=== PATIENT | female | born 1955 | race Caucasian/White ===

== ENCOUNTER 2016-10-01 11:12 | Inpatient (IN) | payer OTHER ==
[2016-10-01] MEDS ORDERED: PROZ20CA11 PO (11:31)
[2016-10-01] MEDS ORDERED: METO25TA3 PO (11:31)
[2016-10-01] MEDS ORDERED: PROT40TA PO (11:31)
[2016-10-01] MEDS ORDERED: ALPR.5 PO (11:31)
== END 2016-10-04 08:00 | disposition home or self-care (01) | DRG 182 ==
LOC: HSDI 10-04 05:09 → EDUNIT# 10-04 08:30
PROVIDERS: ADMIT Thoracic Surgery (Cardiothoracic Vascular Surgery); ATTEND Thoracic Surgery (Cardiothoracic Vascular Surgery)
DX: C34.10 Malignant neoplasm of upper lobe, unspecified bronchus or lung (principal); Z53.8 Procedure and treatment not carried out for other reasons
CPT/HCPCS: 36415; 71020; 80048; 81001; 85027; 85610; 85730; 87086; 93005

== ENCOUNTER → 2016-10-01 | Outpatient (CLI) | payer OTHER ==
[~2016-10-01] MED LIST: ALPR.5 PO; DOCU1CAP39 PO; METO25TA3 PO; MSIR15 PO; PROT40TA PO; PROZ20CA11 PO
[2016-10-01 12:31] LABS: BACTERIA, URINE RARE /hpf; BLOOD, URINE NEG (NEG); COMMENT (UR) CULTURE INDICATED; CULTURE IF INDICATED CULTURE INDICATED; GLUCOSE,URINE NEG (NEG); KETONE, URINE NEG (NEG); MUCUS URINE FEW /lpf (OCC); NITRITE,URINE NEG (NEG); SQUAMOUS EPITHELIAL CELL URINE 2 /hpf (0-5); TRANSITIONAL EPI CELLS, URINE <1 /hpf; URINE COLOR YELLOW (YELLW/STRAW)
[2016-10-01 12:38] LABS: APTT (PATIENT) 30.3 SEC (24.3-30.1); PROTHROMBIN TIME - PATIENT 11.1 SEC (9.8-11.6)
[2016-10-01 12:39] LABS: HEMATOCRIT 38.2 % (35.0-46.0); MEAN CELL VOLUME 89.3 FL (80.0-100.0); MEAN CORPUSCULAR HEMOGLOBIN 28.8 PG (27.0-34.0); MEAN CORPUSCULAR HGB CONC 32.2 % (32.0-36.0); PLATELET COUNT 240 TH/MM3 (150-450); RED BLOOD COUNT 4.28 MIL/MM3 (4.00-5.30); RED CELL DISTRIBUTION WIDTH 14.4 % (11.6-17.2); REVIEW FLAG FINAL
--- NOTE | 2016-10-01 13:10 | RADRPT ---
EXAM DATE/TIME: 10/01/2016 12:43 [facility] COMPARISON: No previous studies available for comparison. INDICATIONS : Evaluate for pneumonia, pneumothorax or communicable disease. Preop chest for left lung lobectomy on 10/04/16, quit smoking 6 weeks ago, no shortness of breath, no chests pain MEDICAL HISTORY : mass left lung SURGICAL HISTORY : None. ENCOUNTER: Initial ACUITY: 1 week PAIN SCORE: 0/10 LOCATION: Left chest FINDINGS: There is a mass in the left upper lung measuring 2.7 cm. Otherwise the lungs are grossly clear and we ll-aerated. There is some mild chronic interstitial changes bilaterally. The heart size is within nor mal limits. There are no pleural effusions or pulmonary edema. The bony structures are grossly intact . CONCLUSION: 1. 2.7 cm mass left upper lung. 2. Mild bilateral chronic interstitial lung changes. 3. No acute pulmonary infiltrates. Tk Higuera MD on October 01, 2016 at 13:08 Board Certified Radiologist. This report was verified electronically.
[2016-10-01 13:32] LABS: POTASSIUM 4.1 MEQ/L (3.5-5.1)
--- NOTE | 2016-10-02 09:41 | EKG ---
Date Performed: 10/01/2016 Time Performed: 12:00:18 PTAGE: 61 years EKG: SINUS BRADYCARDIA BORDERLINE ECG NO PREVIOUS TRACING DOCTOR: Noe Ag Interpretating Date/Time 10/02/2016 09:39:20
== END ==
LOC: CPRE 11:08
PROVIDERS: ATTEND Thoracic Surgery (Cardiothoracic Vascular Surgery)
DX: Z01.810 Encounter for preprocedural cardiovascular examination (principal); Z01.811 Encounter for preprocedural respiratory examination; Z01.812 Encounter for preprocedural laboratory examination; C34.10 Malignant neoplasm of upper lobe, unspecified bronchus or lung; R94.31 Abnormal electrocardiogram [ECG] [EKG]
CPT/HCPCS: 36415; 71020; 80048; 81001; 85027; 85610; 85730; 87086; 93005

== ENCOUNTER 2016-10-08 15:24 | Inpatient (IN) | payer OTHER ==
[~2016-10-08] VITALS: Ht 157.5 cm; Wt 72.4 kg
[~2016-10-08 15:24] MED LIST changes: -DOCU1CAP39 PO; -MSIR15 PO
[2016-10-09] VITALS (13 sets, daily range): BP systolic 101–135; BP diastolic 54–77; PULSE 56–73; RESP 16–20; TEMP 97.4–98; O2SAT 98–100
[2016-10-09] MEDS ORDERED: CHLORHEXIDINE GLUCONATE 2 % 1 PACK (2 CLOTHS) TOPICAL PRN (06:15)
[2016-10-09] MEDS ORDERED: POVIDONE IODINE 5% (ANTISEPSIS KIT) 4 APPLICATIONS EACH NARE PRN (06:15)
[2016-10-09] MEDS ORDERED: LACTATED RINGER'S 1000 ML IV PRN (06:15)
[2016-10-09] MEDS ORDERED: METOPROLOL TARTRATE 25 MG TAB PO PRN (06:15)
[2016-10-09] MEDS ORDERED: INSULIN HUMAN REGULAR 1,000 UNITS/10 ML VIAL SQ PRN (06:15)
[2016-10-09] MEDS ORDERED: SODIUM CHLORID 0.9% 500 ML IV PRN (06:15)
[2016-10-09 06:37] LABS: BASOPHIL # 0.1 TH/MM3 (0-0.2); BASOPHIL % 1.1 % (0.0-2.0); EOSINOPHIL # 0.2 TH/MM3 (0-0.4); HEMATOCRIT 36.4 % (35.0-46.0); HEMO FLAGS DIFF FINAL; LYMPH % 42.3 % (9.0-44.0); LYMPHOCYTE # 2.9 TH/MM3 (1.0-4.8); MEAN CELL VOLUME 87.9 FL (80.0-100.0); MEAN CORPUSCULAR HEMOGLOBIN 29.9 PG (27.0-34.0); MONO % 9.9 % (0.0-8.0); NEUT % 43.7 % (16.0-70.0); PLATELET COUNT 250 TH/MM3 (150-450); RED BLOOD COUNT 4.14 MIL/MM3 (4.00-5.30); RED CELL DISTRIBUTION WIDTH 14.3 % (11.6-17.2); WHITE BLOOD COUNT 6.8 TH/MM3 (4.0-11.0)
[2016-10-09 06:49] LABS: APTT (PATIENT) 30.8 SEC (24.3-30.1); PROTHROMBIN TIME - PATIENT 11.4 SEC (9.8-11.6)
[2016-10-09 06:58] LABS: BICARBONATE 29.9 MEQ/L (21.0-32.0); POTASSIUM 3.9 MEQ/L (3.5-5.1)
[2016-10-09] MEDS ORDERED: ceFAZolin 2 GM PREMIX 50 ML ONE (06:58)
[2016-10-09] MEDS ORDERED: FAMOTIDINE 20 MG/2 ML VIAL ONE (06:59)
[2016-10-09] MEDS ORDERED: MIDAZOLAM HCL 2 MG/2 ML VIAL ONE (06:59)
[2016-10-09 07:27] LABS: BLOOD, URINE NEG (NEG); COMMENT (UR) CULT NOT INDICATED; CULTURE IF INDICATED CULT NOT INDICATED; GLUCOSE,URINE NEG (NEG); KETONE, URINE NEG (NEG); MUCUS URINE FEW /lpf (OCC); NITRITE,URINE NEG (NEG); PH, URINE 5.5 (5.0-8.5); SQUAMOUS EPITHELIAL CELL URINE <1 /hpf (0-5); URINE COLOR YELLOW (YELLW/STRAW)
[2016-10-09] MEDS ORDERED: BUPIVACAINE LIPOSO PF 1.3% INJ 20 ML, DEXAMETHASONE INJ 4 MG, MORPHINE INJ 10 MG in SOD... P-ARTICULR SCH (07:45)
[2016-10-09] MEDS ORDERED: ONDANSETRON HCL 4 MG/2 ML VIAL IV PUSH PRN (10:30)
[2016-10-09] MEDS ORDERED: ACETAMINOPHEN 325 MG TAB PO PRN (10:30)
[2016-10-09] MEDS ORDERED: ACETAMINOPHEN/HYDROcodone 325 MG/5 MG TAB PO PRN ×2 (10:30)
[2016-10-09] MEDS ORDERED: RESP: ALBUTEROL 2.5 MG/3 ML NEB (PRN) NEB (10:30)
[2016-10-09] MEDS ORDERED: MAGNESIUM HYDROXIDE SUSP 30 ML CUP PO PRN (10:30)
[2016-10-09] MEDS ORDERED: SODIUM CHLORIDE 0.9% FLUSH 10 ML FLUSH IV FLUSH PRN (10:30)
[2016-10-09] MEDS ORDERED: Post-op Orders (for Pharmacy) MISC OTHER ONE (10:43)
[2016-10-09] MEDS ORDERED: fentaNYL CITRATE 250 MCG/5 ML AMP ONE (11:06)
[2016-10-09] MEDS ORDERED: *morphine SULFATE 8 MG/ML PERIprocedure ONLY ONE (11:08)
[2016-10-09] MEDS: ACETAMINOPHEN 1000 MG/100 ML VIAL IV SCH ×3 (11:29→23:01)
[2016-10-09] MEDS ORDERED: DO NOT ADM ANY ANTICOAGULANT DRUGS PRN (11:30)
--- NOTE | 2016-10-09 11:49 | RADRPT ---
EXAM DATE/TIME: 10/09/2016 10:55 [facility] COMPARISON: No previous studies available for comparison. INDICATIONS : S/p thoracotomy. MEDICAL HISTORY : None. SURGICAL HISTORY : None. ENCOUNTER: Initial ACUITY: 1 day PAIN SCORE: Non-responsive. LOCATION: Bilateral chest FINDINGS: Chest tube is in place on the left without pneumothorax. Right lung is clear. Heart and pulmonary v ascularity are normal. Minimal subcutaneous emphysema is present. CONCLUSION: Chest tube in good position on the left without pneumothorax. Ulices Fritz MD FACR on October 09, 2016 at 11:45 Board Certified Radiologist. This report was verified electronically.
[2016-10-09] MEDS ORDERED: ONDANSETRON HCL 4 MG/2 ML VIAL IV PUSH ONE (12:00)
[2016-10-09] MEDS ORDERED: NORMOSOL R INJ 2,000 ML IV ONE (12:00)
[2016-10-09] MEDS ORDERED: NEOSTIGMINE 3 MG/3 ML SYR IV ONE (12:00)
[2016-10-09] MEDS ORDERED: LACTATED RINGER'S 1000 ML INJ 1,000 ML IV ONE (12:00)
[2016-10-09] MEDS ORDERED: PROPOFOL 200 MG/20 ML AMP IV ONE (12:00)
[2016-10-09] MEDS ORDERED: ePHEDrine/NS 25 MG/5 ML SYR IV ONE (12:00)
[2016-10-09] MEDS ORDERED: PHENYLEPH/NS 1000 MCG/10 ML SYR IV ONE (12:00)
--- NOTE | 2016-10-09 12:04 | PD.OP ---
cc: Josseline Araya MD; Chuck Newton MD Operative Report Date of Surgery: Oct 09, 2016 Preoperative Diagnosis: Postoperative Diagnosis: Procedure: 1. Left Posterolateral Muscle Sparing Thoracotomy 2. Left Upper Lobectomy 3. Mediastinal Lymph Node Dissection 4. Intercostal Nerve Block . Surgeon: Josseline Araya [employer] Program Director(s): Gloria Agosto . Operation and Findings: PREOPERATIVE DIAGNOSIS 1. Left Upper Lobe Mass 2. COPD 3. Chronic Nicotine Use POSTOPERATIVE DIAGNOSIS same PROCEDURES 1. Left Posterolateral Muscle Sparing Thoracotomy 2. Left Upper Lobectomy 3. Mediastinal Lymph Node Dissection 4. Intercostal Nerve Block SURGEON Josseline Araya MD LOG SNAKER LUCIE Givens ANESTHESIA General endotracheal. DRESSMAKER OR TAILOR JOSTIN Marc CRNA Carlos Montalvo, MD OPERATIVE TIME Please see record. COMPLICATIONS None. INDICATION FOR PROCEDURE The patient is a 61 yo lady with left upper lobe enlarging mass, presenting for surgical resection of above pathology. DESCRIPTION OF PROCEDURE The patient was brought to the operating suite and placed in supine position. Following satisfactory induction of general double-lumen endotracheal anesthesia , the patient was placed in the right lateral decubitus position. The left chest and surrounding area was then prepped and draped in the usual sterile fashion. A standard muscle-sparing posterolateral thoracotomy was performed and the serratus anterior muscle spared. The pleural space was entered in the 5th ICS. Exploration of the chest revealed a large mass in the upper lobe. The inferior pulmonary ligament was divided. The pulmonary arterial supply to the upper lobe was identified, dissected free and divided as was the pulmonary venous supply. The bronchus was then dissected free, clamped and the remaining lung was insufflated without any difficulty. Lymph node dissections of level 6, 7, 10 and 11 were performed along with the course of this removal. Some of these were retained with the specimen. Specimen was removed from the chest. Frozen section was consistent with Adenocarcinoma with clear bronchial margins. At this point the closure was undertaken. A 32-Irish chest tube was placed. Intercostal nerve block was performed at the level of the incision and 3 rib spaces above and below using Exparel with Decadron solution. The pericostal space was approximated with interrupted #1 Vicryl sutures in a pericostal fashion. The serratus fascia and Latissimus dorsi were closed with running 0- Vicryl and the remaining wounds closed with 3-0, and 4-0 Monocryl. The patient tolerated the procedure well and postoperatively went to the PACU in stable condition. Josseline Araya MD Oct 09, 2016 12:04
[2016-10-09] MEDS: KETOROLAC TROMETHAMINE 30 MG/ML (IVP) VIAL IV PUSH SCH ×3 (12:15→23:02)
[2016-10-09] MEDS: RESP: ALBUTEROL 2.5 MG/3 ML NEB (SCH) NEB ×2 (15:18→21:31)
[2016-10-09] MEDS: PANTOPRAZOLE SOD 40 MG DELAYED RELEASE TAB PO SCH (20:56)
[2016-10-09] MEDS: METOPROLOL TARTRATE 25 MG TAB PO SCH (20:56)
[2016-10-09] MEDS: SODIUM CHLORIDE 0.9% FLUSH 10 ML FLUSH IV FLUSH SCH (20:56)
[2016-10-09] MEDS: ALPRAZolam 0.5 MG TAB PO PRN (20:56)
[2016-10-09] MEDS ORDERED: DOCUSATE CALCIUM 240 MG CAP PO SCH (21:00)
[2016-10-10] VITALS (27 sets, daily range): BP systolic 110–148; BP diastolic 55–81; PULSE 60–83; RESP 16–18; TEMP 98.2–99.2; O2SAT 91–96
[2016-10-10] MEDS: RESP: ALBUTEROL 2.5 MG/3 ML NEB (SCH) NEB ×3 (03:06→20:07)
[2016-10-10] MEDS: ACETAMINOPHEN 1000 MG/100 ML VIAL IV SCH (04:29)
[2016-10-10] MEDS: KETOROLAC TROMETHAMINE 30 MG/ML (IVP) VIAL IV PUSH SCH (04:54)
[2016-10-10 06:35] LABS: BASOPHIL % 0.2 % (0.0-2.0); EOSINOPHIL % 0.1 % (0.0-4.0); HEMATOCRIT 31.7 % (35.0-46.0); HEMO FLAGS DIFF FINAL; LYMPH % 22.8 % (9.0-44.0); LYMPHOCYTE # 2.7 TH/MM3 (1.0-4.8); MEAN CELL VOLUME 88.7 FL (80.0-100.0); MEAN CORPUSCULAR HEMOGLOBIN 29.9 PG (27.0-34.0); MEAN CORPUSCULAR HGB CONC 33.7 % (32.0-36.0); MONO % 9.1 % (0.0-8.0); NEUT % 67.8 % (16.0-70.0); PLATELET COUNT 220 TH/MM3 (150-450); RED BLOOD COUNT 3.57 MIL/MM3 (4.00-5.30); RED CELL DISTRIBUTION WIDTH 14.3 % (11.6-17.2); WHITE BLOOD COUNT 11.8 TH/MM3 (4.0-11.0)
[2016-10-10 07:08] LABS: BICARBONATE 28.3 MEQ/L (21.0-32.0); POTASSIUM 3.7 MEQ/L (3.5-5.1)
[2016-10-10] MEDS: PANTOPRAZOLE SOD 40 MG DELAYED RELEASE TAB PO SCH (09:15)
[2016-10-10] MEDS: POLYETHYLENE GLYCOL 17 GM PKG PO SCH (09:15)
[2016-10-10] MEDS: DOCUSATE SODIUM 100 MG CAP PO SCH ×2 (09:15→21:31)
[2016-10-10] MEDS: METOPROLOL TARTRATE 25 MG TAB PO SCH ×2 (09:15→21:31)
[2016-10-10] MEDS: FLUoxetine HCL 20 MG CAP PO SCH (09:15)
[2016-10-10] MEDS: SODIUM CHLORIDE 0.9% FLUSH 10 ML FLUSH IV FLUSH SCH ×2 (09:16→21:00)
[2016-10-10] MEDS ORDERED: PILL SPLITTER OTHER PRN (14:00)
[2016-10-10] MEDS: MORPHINE SULFATE 15 MG TAB PO PRN ×2 (14:13→21:31)
--- NOTE | 2016-10-10 14:50 | PD.CAR.PN ---
CVT Progress Note CVT: POD #: 1 Subjective/Hospital Course: 61/ female referred by Dr Newton / PCP Dr Mcbride with a newly identified left upper lobe mass on routine CXR Pet scan demonstrated large MOISE mass suspicious for underlying maligancy PMH: stomach ulcers, HTN, PUD , former smoker surgery: Left Posterolateral Muscle Sparing Thoracotomy, Left Upper Lobectomy , Mediastinal Lymph Node Dissection initial path + adenocarcinoma / await full report 10/09 pt had 190cc/ chest tube drainage on room air c/o of pain, cannot take anything with codiene no hydrocodone/ no oxycodone , no tramadol add morphine sulfate 15mg po q6hr prn for pain pulm toileting Objective: Vital Signs Date Time Temp Pulse Resp B/P Pulse Ox O2 Delivery O2 Flow Rate FiO2 10/10/16 13:00 69 10/10/16 12:00 72 10/10/16 11:08 98.5 70 18 126/57 94 10/10/16 11:00 68 10/10/16 10:00 73 10/10/16 09:00 62 10/10/16 08:00 67 10/10/16 07:42 99.2 76 16 114/55 93 10/10/16 07:42 93 Room Air 10/10/16 07:00 60 10/10/16 06:19 69 10/10/16 05:26 67 10/10/16 04:20 67 10/10/16 03:30 65 10/10/16 03:30 98.2 75 16 110/55 96 10/10/16 02:29 62 10/10/16 01:09 65 10/10/16 00:14 98.5 74 16 121/59 95 10/10/16 00:14 83 10/09/16 22:00 66 10/09/16 21:00 60 10/09/16 20:30 73 10/09/16 19:15 98 Room Air 10/09/16 19:15 60 10/09/16 19:15 98.0 61 16 116/58 98 10/09/16 18:10 18 10/09/16 18:00 60 10/09/16 17:00 60 10/09/16 16:00 97.6 66 20 113/54 100 10/09/16 16:00 61 10/09/16 15:18 98 Nasal Cannula 2.00 10/09/16 15:00 59 Labs: Laboratory Tests Test 10/10/16 04:55 White Blood Count 11.8 TH/MM3 (4.0-11.0) Red Blood Count 3.57 MIL/MM3 (4.00-5.30) Hemoglobin 10.7 GM/DL (11.6-15.3) Hematocrit 31.7 % (35.0-46.0) Mean Corpuscular Volume 88.7 FL (80.0-100.0) Mean Corpuscular Hemoglobin 29.9 PG (27.0-34.0) Mean Corpuscular Hemoglobin 33.7 % Concent (32.0-36.0) Red Cell Distribution Width 14.3 % (11.6-17.2) Platelet Count 220 TH/MM3 (150-450) Mean Platelet Volume 8.2 FL (7.0-11.0) Neutrophils (%) (Auto) 67.8 % (16.0-70.0) Lymphocytes (%) (Auto) 22.8 % (9.0-44.0) Monocytes (%) (Auto) 9.1 % (0.0-8.0) Eosinophils (%) (Auto) 0.1 % (0.0-4.0) Basophils (%) (Auto) 0.2 % (0.0-2.0) Neutrophils # (Auto) 8.0 TH/MM3 (1.8-7.7) Lymphocytes # (Auto) 2.7 TH/MM3 (1.0-4.8) Monocytes # (Auto) 1.1 TH/MM3 (0-0.9) Eosinophils # (Auto) 0.0 TH/MM3 (0-0.4) Basophils # (Auto) 0.0 TH/MM3 (0-0.2) CBC Comment DIFF FINAL Differential Comment Sodium Level 132 MEQ/L (136-145) Potassium Level 3.7 MEQ/L (3.5-5.1) Chloride Level 95 MEQ/L (98-107) Carbon Dioxide Level 28.3 MEQ/L (21.0-32.0) Anion Gap 9 MEQ/L (5-15) Blood Urea Nitrogen 11 MG/DL (7-18) Creatinine 0.66 MG/DL (0.50-1.00) Estimat Glomerular Filtration 92 ML/MIN (>89) Rate Random Glucose 94 MG/DL (74-106) Calcium Level 8.0 MG/DL (8.5-10.1) Result Diagram: 10/10/1645410/10/16454 Telemetry: NSR (1) Mass of left lung (2) Left Posterolateral Muscle Sparing Thoracotomy, Left Upper Lobectomy Plan: pulm toileting nebs, ezpap acapella pain control await full path report OOB, ambulate leave chest tube in today (3) PUD (peptic ulcer disease) Plan: on PPI (4) Hypertension Plan: stable Erika Rizo Oct 10, 2016 14:50
--- NOTE | 2016-10-10 15:14 | HHI.FF ---
Face to Face Verification Diagnosis: (1) Mass of left lung (2) Left Posterolateral Muscle Sparing Thoracotomy, Left Upper Lobectomy Home Health Nursing Order: Signs/symptoms of disease process Wound care and dressing changes Nursing assessment with vital signs Home Health Aide Instructions: Incentive spirometry Q1 hr x 10, while awake, also use acapella device hourly whole awake chest wall Precautions: NO pushing or pulling, ( pt must use chest pillow to support chest with all activities and with coughing Daily incision care: ok to shower daily, no tub bath. Wash all incisions with liquid dial soap, clean wash cloth to each site, rinse and pat dry. Observe for any signs of infection, such as drainage which is dark yellow, verdin, green or foul smelling. Immediately report to the surgeon any drainage from the chest incision, or legs, and for any abnormal drainage from the chest tube sites. Notify surgeon if any temp >101.5 degrees F. When specialty dressing removed/ or if you do not have one, continue to shower daily as above, then rinse and pat incision dry and paint with betadine daily x 5 days. Allow steri strips to fall off if you have any. Avoid lotions, creams, salves, oils, etc. for the first month F/U appointment: as per [facility] instructions: PCP in 2 weeks, CV surgeon 2 weeks, Four H Agent 3-4 weeks For any questions regarding incisions/ dressing / meds / post op care or above Symptoms, Friday 8am-5pm Heart & Vascular Surgery Office ( Dr. Araya & Dr. Shannon), After Hours / Nights (5pm -8am) Weekends and Holidays Please call [facility] Card[facility] ([facility]) Charge Nurse I have seen patient Hayley Curtis on 10/10/16. My clinical findings support the need for the requested home health care services because: Deconditioned w/ increased weakness I certify that my clinical findings support that this patient is homebound because: Post-op weakness Erika Rizo Oct 10, 2016 15:14
[2016-10-10] MEDS: ALPRAZolam 0.5 MG TAB PO PRN ×2 (16:20→23:59)
[2016-10-10] MEDS: ACETAMINOPHEN 1000 MG/100 ML VIAL IV PRN ×2 (17:43→23:59)
[2016-10-11] VITALS (17 sets, daily range): BP systolic 141–151; BP diastolic 77–81; PULSE 67–84; RESP 16–18; TEMP 98.2–99; O2SAT 93–96
[2016-10-11] MEDS: MORPHINE SULFATE 15 MG TAB PO PRN ×2 (03:29→09:00)
[2016-10-11] MEDS: RESP: ALBUTEROL 2.5 MG/3 ML NEB (SCH) NEB ×2 (04:00→07:58)
[2016-10-11] MEDS: POLYETHYLENE GLYCOL 17 GM PKG PO SCH (09:00)
[2016-10-11] MEDS: METOPROLOL TARTRATE 25 MG TAB PO SCH (09:00)
[2016-10-11] MEDS: SODIUM CHLORIDE 0.9% FLUSH 10 ML FLUSH IV FLUSH SCH (09:01)
[2016-10-11] MEDS: FLUoxetine HCL 20 MG CAP PO SCH (09:01)
[2016-10-11] MEDS: DOCUSATE SODIUM 100 MG CAP PO SCH (09:01)
[2016-10-11] MEDS ORDERED: MSIR15 PO ×2 (14:06→14:31)
[2016-10-11] MEDS ORDERED: DOCU1CAP39 PO (14:06)
--- NOTE | 2016-10-11 14:45 | HHI.DS ---
Discharge Summary Admission Date Oct 09, 2016 at 05:38 Discharge Date: Oct 11, 2016 Admitting Diagnosis lung mass (1) Mass of left lung (2) Hypertension Diagnosis: Principal (3) Left Posterolateral Muscle Sparing Thoracotomy, Left Upper Lobectomy Diagnosis: Secondary (4) Lung cancer Diagnosis: Secondary Procedures 1. Left Posterolateral Muscle Sparing Thoracotomy 10/09 2. Left Upper Lobectomy 3. Mediastinal Lymph Node Dissection Brief History 61/ female referred by Dr Newton / PCP Dr Mcbride with a newly identified left upper lobe mass on routine CXR Pet scan demonstrated large MOISE mass suspicious for underlying maligancy PMH: stomach ulcers, HTN, PUD , former smoker surgery: Left Posterolateral Muscle Sparing Thoracotomy, Left Upper Lobectomy , Mediastinal Lymph Node Dissection initial path + adenocarcinoma / invasive moderately differentiated adenocarcinoma 2/5 lymph node involvement CBC/BMP: 10/10/16 0455 10/10/16 0455 Significant Findings Laboratory Tests Test 10/09/16 10/10/16 06:05 04:55 Monocytes (%) (Auto) 9.9 % (0.0-8.0) 9.1 % (0.0-8.0) Activated Partial 30.8 SEC Thromboplast Time (24.3-30.1) Urine Leukocyte Esterase TRACE (NEG) Urine Mucus FEW /lpf (OCC) Estimat Glomerular Filtration 83 ML/MIN (>89) Rate Random Glucose 69 MG/DL (74-106) White Blood Count 11.8 TH/MM3 (4.0-11.0) Red Blood Count 3.57 MIL/MM3 (4.00-5.30) Hemoglobin 10.7 GM/DL (11.6-15.3) Hematocrit 31.7 % (35.0-46.0) Neutrophils # (Auto) 8.0 TH/MM3 (1.8-7.7) Monocytes # (Auto) 1.1 TH/MM3 (0-0.9) Sodium Level 132 MEQ/L (136-145) Chloride Level 95 MEQ/L (98-107) Calcium Level 8.0 MG/DL (8.5-10.1) Imaging Last Impressions Chest X-Ray 10/09/16 0000 Signed Impressions: Service Date/Time: Sunday, October 09, 2016 10:55 - CONCLUSION: Chest tube in good position on the left without pneumothorax. Ulices Fritz MD FACR PE at Discharge GENERAL: SKIN: Warm and dry. incision intact and well approximated to left chest ( posterior) HEAD: Normocephalic. EYES: No scleral icterus. No injection or drainage. NECK: Supple, trachea midline. No JVD or lymphadenopathy. CARDIOVASCULAR: Regular rate and rhythm without murmurs, gallops, or rubs. RESPIRATORY: Breath sounds equal bilaterally. No accessory muscle use. GASTROINTESTINAL: Abdomen soft, non-tender, nondistended. MUSCULOSKELETAL: No cyanosis, or edema. BACK: Nontender without obvious deformity. No CVA tenderness. Hospital Course 61/ female referred by Dr Newton / PCP Dr Mcbride with a newly identified left upper lobe mass on routine CXR Pet scan demonstrated large MOISE mass suspicious for underlying maligancy PMH: stomach ulcers, HTN, PUD , former smoker surgery: Left Posterolateral Muscle Sparing Thoracotomy, Left Upper Lobectomy , Mediastinal Lymph Node Dissection 10/09 initial path + adenocarcinoma / await full report 10/10 pt had 190cc/ chest tube drainage on room air c/o of pain, cannot take anything with codiene no hydrocodone/ no oxycodone , no tramadol add morphine sulfate 15mg po q6hr prn for pain 10/11 chest tube removed without difficulty on room path discussed with pt invasive moderately differentiated adenocarcinoma will need f/u with Oncology Dr Graciela Johnson in [facility] dc today Pt Condition on Discharge: Good Discharge Disposition: Disch w/ Home Health Serv Discharge Instructions DIET: Follow Instructions for: As Tolerated, No Restrictions Activities you can perform: Shower Only-No Bath Activities to avoid: Driving Additional Activity Instructio: no lifting > 8 lbs or gallon of milk Follow up Referrals: Oncology - 10/25/[address] Graciela Johnson october 15 2:30 pm [place] office PCP Follow-up with Manolo Mcbride MD Pulmonology @ [facility] with Chuck Newton MD [place] office Surgical with Josseline Araya MD New Medications: Morphine IR (Morphine IR) 15 Mg Tab 15 MG PO Q6HR take 1/2 tablet every 6 hours as needed for pain (7.5mg) PRN PAIN #30 Ref 0 TAB Docusate Sodium (Dok) 100 Mg Cap 100 MG PO BID Constipation #60 CAP Continued Medications: Alprazolam (Xanax) 0.5 Mg Tab 0.5 MG PO Q6H PRN ANXIETY Ref 0 TAB Fluoxetine (Prozac) 20 Mg Cap 20 MG PO DAILY #30 Ref 0 CAP Metoprolol Tartrate (Metoprolol Tartrate) 25 Mg Tab 25 MG PO BID #60 Ref 0 TAB Pantoprazole (Protonix) 40 Mg Tab 40 MG PO DAILY Reflux #30 Ref 0 TAB Erika Rizo Oct 11, 2016 14:45
== END 2016-10-11 15:12 | disposition home or self-care (01) | DRG 164 ==
LOC: HSDI 10-09 05:38 → HCIN 10-09 12:28
PROVIDERS: ADMIT Thoracic Surgery (Cardiothoracic Vascular Surgery); ATTEND Thoracic Surgery (Cardiothoracic Vascular Surgery)
PROC: 0BBG0ZZ Excision of Left Upper Lung Lobe, Open Approach (ICD-10-PCS; 2016-10-09)
PROC: 07B70ZX Excision of Thorax Lymphatic, Open Approach, Diagnostic (ICD-10-PCS; 2016-10-09)
PROC: 3E0T3CZ (ICD-10-PCS; 2016-10-09)
PROC: 0W9B30Z Drainage of Left Pleural Cavity with Drainage Device, Percutaneous Approach (ICD-10-PCS; 2016-10-09)
PROC: 0BTG0ZZ Resection of Left Upper Lung Lobe, Open Approach (ICD-10-PCS; principal; 2016-10-09 07:18)
DX: C34.12 Malignant neoplasm of upper lobe, left bronchus or lung (principal); C78.1 Secondary malignant neoplasm of mediastinum; J44.9 Chronic obstructive pulmonary disease, unspecified; Z72.0 Tobacco use; Z87.11 Personal history of peptic ulcer disease; I10 Essential (primary) hypertension
CPT/HCPCS: 71010; 76937; 80048; 81001; 85025; 85610; 85730; 86850; 86900; 86901; 86920; 88305; 88307; 88331; 94150; 94640; 94664; 94667; 94668; C9290; J0131; J0690; J1100; J1885; J2250; J2270; J2370; J2405; J2710; J3010; J7120; J7613